=== PATIENT | male | born 1955 | race Caucasian/White ===

== ENCOUNTER 2024-05-27 13:51 | Outpatient (CLI) | payer MEDICARE, OTHER, SELFPAY ==
--- NOTE | 2024-05-27 14:04 | US_ITS ---
FINAL REPORT TECHNIQUE: Ultrasound images of the testicles were obtained bilaterally. Color Doppler images were obtained. CLINICAL HISTORY: LEFT HYDROCELE COMPARISON: None FINDINGS: SCROTAL ULTRASOUND Testes have a homogeneous architecture. Normal flow is demonstrated by Doppler exam. No significant fluid collections are present. There is a cystic mass superior medial to the left testis measuring 36 x 23 x 22 mm. This could represent enlarged epididymal cystic mass or a loculated hydrocele or other mass. There is no appreciable hydrocele on the right. IMPRESSION: No evidence of testicular mass/neoplasm. Cystic mass superior medial to the left testis with differential of large epididymal cystic mass, spermatic cord lesion, or loculated hydrocele. Recommend urologic consultation. Reviewed, Interpreted and Dictated by Gopi Leary MD Transcribed by Patience Truong Authenticated and [facility]
== END 2024-05-27 23:59 | disposition home or self-care (01) ==
LOC: RAD 13:56
PROVIDERS: PCP Family Medicine; Visit Provider Family Medicine
DX: N43.3 Hydrocele, unspecified (principal)
CPT/HCPCS: 76870